=== PATIENT | male | born 1990 | race African-American/Black ===

== ENCOUNTER 2018-07-11 13:00 | Emergency (ER) | payer SELFPAY ==
[2018-07-11 13:04] VITALS: BP 136/80
--- NOTE | 2018-07-11 14:27 | ER Document Report ---
ED GI Bleed / Rectal Pain - General Chief Complaint: Bloody Stools Stated Complaint: BLOOD IN STOOL Time Seen by Provider: 07/11/18 13:46 Notes: Chief complaint: Rectal bleed History of complain:( obtained from----patient) 27 years old male had one bowel movement this morning which was slightly blood stained, the blood was sitting on the stool small amount was concerned and came to the ED never had a previous episode. Since then had not had any bleeding. No pain. No other symptoms. Sudden Onset: Sudden Duration: One time Severity: Mild Quality: Not applicable Context: Not applicable Exacerbating factor and relieving factors: None REVIEW OF SYSTEMS: CONSTITUTIONAL : Denies fever, chills, or sweats. Denies recent illness. EENT: Denies eye, ear, throat, or mouth pain or symptoms. Denies nasal or sinus congestion or discharge. Denies throat, tongue, or mouth swelling or difficulty swallowing. CARDIOVASCULAR: Denies chest pain. Denies palpitations or racing or irregular heart beat. Denies ankle edema. RESPIRATORY: Denies cough, cold, or chest congestion. Denies shortness of breath, difficulty breathing, or wheezing. GASTROINTESTINAL: Denies distention. Denies nausea, vomiting, or diarrhea. Denies blood in vomitus, stools, or per rectum. Denies black, tarry stools. Denies constipation. GENITOURINARY: Denies difficulty urinating, painful urination, burning, frequency, blood in urine, or discharge. FEMALE GENITOURINARY: Denies vaginal bleeding, heavy or abnormal periods, irregular periods. Denies vaginal discharge or odor. MUSCULOSKELETAL: Denies back or neck pain or stiffness. Denies joint pain or swelling. SKIN: Denies rash, lesions or sores. HEMATOLOGIC : Denies easy bruising or bleeding. LYMPHATIC: Denies swollen, enlarged glands. NEUROLOGICAL: Denies confusion or altered mental status. Denies passing out or loss of consciousness. Denies dizziness or lightheadedness. Denies headache. Denies weakness or paralysis or loss of use of either side. Denies problems with gait or speech. Denies sensory loss, numbness, or tingling. Denies seizures. PSYCHIATRIC: Denies anxiety or stress. Denies depression, suicidal ideation, or homicidal ideation. ALL OTHER SYSTEMS REVIEWED AND NEGATIVE. PHYSICAL EXAMINATION: GENERAL: Well-appearing, well-nourished and in no acute distress. HEAD: Atraumatic, normocephalic. EYES: Pupils equal round and reactive to light, extraocular movements intact, conjunctiva are normal. ENT: Nares patent, oropharynx clear without exudates. Moist mucous membranes. NECK: Normal range of motion, supple without lymphadenopathy LUNGS: Breath sounds clear to auscultation bilaterally and equal. No wheezes rales or rhonchi. HEART: Regular rate and rhythm without murmurs ABDOMEN: Soft, nontender, nondistended abdomen. No guarding, no rebound. No masses appreciated. Rectal exam-normal no hemorrhoids noted no obvious fissures noted. No internal hemorrhoids. Stool color is yellow. Examination of genitals-deferred Musculoskeletal: Normal range of motion, no pitting or edema. No cyanosis. NEUROLOGICAL: Cranial nerves grossly intact. Normal speech, normal gait. Normal sensory, motor exams PSYCH: Normal mood, normal affect. SKIN: Warm, Dry, normal turgor, no rashes or lesions noted. Dictation was performed using [employer] voice recognition software TRAVEL OUTSIDE OF THE [place] IN LAST 30 DAYS: No - HPI Notes: Dictated - Related Data Allergies/Adverse Reactions: No Known Allergies Allergy (Verified 02/16/16 03:36) Past Medical History - Social History Smoking Status: Current Every Day Smoker Cigarette use (# per day): No Chew tobacco use (# tins/day): No Smoking Education Provided: No Frequency of alcohol use: Occasional Drug Abuse: None Family History: Reviewed & Not Pertinent Patient has suicidal ideation: No Patient has homicidal ideation: No Renal/ Medical History: Denies: Hx Peritoneal Dialysis - Immunizations Immunizations up to date: Yes Hx Diphtheria, Pertussis, Tetanus Vaccination: Yes Review of Systems - Review of Systems Notes: Dictated Physical Exam - Vital signs Vitals: Temp Pulse Resp BP Pulse Ox 99.0 F 89 14 136/80 H 98 07/11/18 13:07/11/18 13:07/11/18 13:07/11/18 13:03 07/11/18 13:03 - Notes Notes: Dictated Course - Vital Signs Vital signs: Temp Pulse Resp BP Pulse Ox 99.0 F 89 14 136/80 H 98 07/11/18 13:03 07/11/18 13:03 07/11/18 13:03 07/11/18 13:03 07/11/18 13:03 Discharge - Discharge Clinical Impression: Rectal bleed Condition: Fair Disposition: HOME, SELF-CARE Instructions: Rectal Bleeding, Unclear Cause (OM)
== END 2018-07-11 15:35 | disposition home or self-care (01) ==
LOC: ER 13:00
DX: K62.5 Hemorrhage of anus and rectum (principal); R19.5 Other fecal abnormalities; F17.200 Nicotine dependence, unspecified, uncomplicated
CPT/HCPCS: 82272; 99284

== ENCOUNTER 2018-09-26 21:31 | Emergency (ER) | payer SELFPAY ==
[2018-09-26] MEDS ORDERED: MORPHINE SULFATE 10 MG/ML INJ IM ONE (23:10)
[2018-09-26] MEDS ORDERED: ONDANSETRON 4 MG TAB.RAPDIS PO ONE (23:10)
[2018-09-26] MEDS ORDERED: AMOXICILLIN TR/POT CLAVULANATE 500-125 MG TAB PO ONE (23:11)
[2018-09-26] MEDS ORDERED: RABIES IMMUNE GLOBULIN INJ/PF 300 UNIT/2 ML SDV IM ONE (23:15)
[2018-09-26] MEDS ORDERED: RABIES VACCINE (PCEC)/PF 2.5 UNIT/1 ML KIT IM ONE (23:15)
[2018-09-26] MEDS ORDERED: DIPH/PERTUSS(ACELL)/TETANUS VAC/PF 0.5 ML SYR (>=10YO) IM ONE (23:17)
[2018-09-26] MEDS ORDERED: LIDOCAINE 1% INJ-PF (10 MG/ML) 30 ML SDV INJ ONE (23:17)
--- NOTE | 2018-09-26 23:24 | ER Document Report ---
ED Animal Bite - General Chief Complaint: Dog Bite Stated Complaint: POSSIBLE DOG BITE Time Seen by Provider: 09/26/18 22:57 Mode of Arrival: Wheelchair Information source: Patient Notes: 28-year-old male presented to ED for complaint of dog bites to his left thigh and knee and right index finger. He states him and his girlfriend were walking along when a big black dog came up and was very aggressive. He states he tried to get him to go away and he became more aggressive and bit him multiple times to the left leg left thigh and left knee he states he stuck his hand in his mouth to get him off of his leg and he bit his right index finger. He states he has never seen this dog before and does not know where the dog came from. He states it happened about 730 tonight. He states his tetanus is not up-to- date. He states that the time he was able to walk it was not painful but it is slowly become more more painful. TRAVEL OUTSIDE OF THE [place] IN LAST 30 DAYS: No - HPI Location of injury: LLE, Other - Right index finger Severity of injury: Bitten Onset: This evening Quality of pain: Pressure, Sharp, Throbbing Pain Level: 5 Context of attack: "Unprovoked" attack Type of animal: Dog Appearance of animal: Appeared well Animal's immunizations: Unknown Animal captured or known: No Animal control notified: Yes Animal control form completed: Yes - Related Data Allergies/Adverse Reactions: No Known Allergies Allergy (Verified 02/16/16 03:36) Past Medical History - General Information source: Patient - Social History Smoking Status: Current Every Day Smoker Cigarette use (# per day): Yes - 5-6 cigarettes a day Chew tobacco use (# tins/day): No Smoking Education Provided: Yes - 4 Minutes Frequency of alcohol use: Social Drug Abuse: Marijuana Occupation: [employer] Lives with: Friend Family History: Reviewed & Not Pertinent Patient has suicidal ideation: No Patient has homicidal ideation: No - Past Medical History Cardiac Medical History: Reports: None Pulmonary Medical History: Reports: None EENT Medical History: Reports: None Neurological Medical History: Reports: None Endocrine Medical History: Reports: None Renal/ Medical History: Reports: None Malignancy Medical History: Reports None GI Medical History: Reports: None Musculoskeletal Medical History: Reports Hx Musculoskeletal Trauma Skin Medical History: Reports None Psychiatric Medical History: Reports: None Traumatic Medical History: Reports: None Infectious Medical History: Reports: None Surgical Hx: Negative Past Surgical History: Reports: None - Immunizations Immunizations up to date: Yes Hx Diphtheria, Pertussis, Tetanus Vaccination: Yes - 09/26/2018 Review of Systems - Review of Systems Constitutional: No symptoms reported EENT: No symptoms reported Cardiovascular: No symptoms reported Respiratory: No symptoms reported Gastrointestinal: No symptoms reported Genitourinary: No symptoms reported Male Genitourinary: No symptoms reported Musculoskeletal: No symptoms reported Skin: Other - Multiple dog bites to the left thigh knee and leg and a small dog bite to the right index finger Hematologic/Lymphatic: No symptoms reported Neurological/Psychological: No symptoms reported -: Yes All other systems reviewed and negative Physical Exam - Vital signs Vitals: Temp Pulse Resp BP Pulse Ox 99.0 F 100 20 145/87 H 100 09/26/18 21:38 09/26/18 21:38 09/26/18 21:38 09/26/18 21:38 09/26/18 21:38 Interpretation: Normal - General General appearance: Appears well, Alert - HEENT Head: Normocephalic, Atraumatic Eyes: Normal Pupils: PERRL - Respiratory Respiratory status: No respiratory distress Chest status: Nontender Breath sounds: Normal Chest palpation: Normal - Cardiovascular Rhythm: Regular Heart sounds: Normal auscultation Murmur: No - Abdominal Inspection: Normal Distension: No distension Bowel sounds: Normal Tenderness: Nontender Organomegaly: No organomegaly - Back Back: Normal, Nontender - Extremities General upper extremity: Normal color, Normal ROM, Normal temperature General lower extremity: Normal color, Normal ROM, Normal temperature, Normal weight bearing. No: Darlyn's sign Hand: Tender, Laceration - Dog bite to right index finger, No evidence of human bite, No evidence of FB Thigh: Tender, Laceration - 8 dog bite laceration to left thigh Knee: Tender - Multiple dog bites to the left thigh, Laceration - 2 dog bites to the left knee - Neurological Neuro grossly intact: Yes Cognition: Normal Orientation: AAOx4 [place] Coma Scale Eye Opening: Spontaneous [place] Coma Scale Verbal: Oriented [place] Coma Scale Motor: Obeys Commands [place] Coma Scale Total: 15 Speech: Normal Motor strength normal: LUE, RUE, LLE, RLE Sensory: Normal - Psychological Associated symptoms: Normal affect, Normal mood - Skin Skin Temperature: Warm Skin Moisture: Dry Skin Color: Normal Course - Re-evaluation Re-evalutation: 09/27/18 01:20 8 lacerations from dog bites to the left thigh cleaned well with Shur-Clens after using lidocaine 2 numb the area rinsed well with saline then rabies immunoglobulin inserted wounds dressed with Neosporin and large Band-Aids. Same procedure followed for 2 lacerations to left knee and one laceration to right index finger. Patient was treated with Augmentin, tetanus, and rabies vaccine. Patient was instructed to follow-up for scheduled vaccines as per protocol. Patient was discharged home with prescription for Augmentin and a [place] dispense pack. Patient instructed to follow-up with his primary doctor tomorrow to have wounds reassessed and follow-up appointments made for any pain control needed after his initial [place] dispense pack. Patient will be seen in the emergency room on day 3, 7, and 14 for his rabies vaccines. Patient will be provided with crutches due to the pain in his leg. 09/27/18 01:37 Dr. Peter was consulted and he did come and examine the dog bites. Patient understood the risk of suturing his dog bites and stated he did not want any sutures and was okay with the scarring. - Vital Signs Vital signs: Temp Pulse Resp BP Pulse Ox 99.0 F 100 20 145/87 H 100 09/26/18 21:38 09/26/18 21:38 09/26/18 21:38 09/26/18 21:38 09/26/18 21:38 - Diagnostic Test Radiology reviewed: Image reviewed, Reports reviewed Discharge - Discharge Clinical Impression: dog bite to right index finger Dog bite of multiple sites of left lower extremity Qualifiers: Encounter type: initial encounter Qualified Code(s): S81.852A - Open bite, left lower leg, initial encounter; W54.0XXA - Bitten by dog, initial encounter; W54.0XXA - Bitten by dog, initial encounter Condition: Stable Disposition: HOME, SELF-CARE Instructions: Family Physicians / Practices Additional Instructions: Animal Bites Animal bites are often heavily contaminated with bacteria. In spite of thorough cleansing and proper treatment, these wounds frequently become infected. Bite wounds of the hands are especially prone to complications. Bites are dressed, if possible. Large wounds may require suturing after internal cleansing. Because of infection risk, some large wounds must remain unstitched. Your doctor is trained to advise you on the best treatment for your bite. Call the doctor at once if the wound becomes red, swollen, warm, increasingly painful, or if it begins to drain. Danger signs also include red streaks up the involved extremity, swollen glands in the groin or under the arm , or fever and chills. The risk of rabies from domestic animals is very low. Bats, sick animals, and wild animals may expose you to rabies. The physician, or the health department, will inform you if you will need to receive the rabies vaccine. NON-SUTURED LACERATION: Your laceration did not require suturing. Some lacerations cannot be sutured because of increased infection risk, while others simply don't need stitches because they are shallow or very short. Your injury should be protected while it heals. Usually complete healing takes 10 to 14 days. Keep the dressing clean and dry, and change it every day. If you notice increasing pain, redness, swelling, drainage, or tender lumps in the armpit or groin above the injury, infection may be present. You should call the doctor at once. SOAP CLEANSING: Gently wash the wound daily using a mild soap (like Ivory, Phisoderm, Neutrogena). Use warm water, rubbing gently until all debris, ooze, and crusting have been washed from the wound. Allow to dry briefly (about 10 minutes) after cleaning. Repeat this cleansing at least three times a day for the first two days and then once or twice a day. ANTIBIOTIC OINTMENT PROTECTION: Your wounds are such that dressing them is not practical or optional. After cleansing, you should apply a thin coating of antibiotic ointment ( Bacitracin, not Neosporin) to the wounds at least three times daily. This lessens infection risk, and may decrease the amount of scarring. Use a q-tip or dull butter knife, not your finger, to apply this ointment. Any debris or ooze which builds up in the ointment should be gently rubbed off with a sterile gauze pad. Harder crusting may need to be gently scrubbed off with a clean wash cloth with soap and warm water, perhaps applying a warm, wet wash cloth to the wound for ten minutes first. Development of redness, severe itching, or blistering may mean allergy to the ointment. See the doctor. TETANUS IMMUNIZATION GIVEN: You have been given an immunization against tetanus. Please record this in your records. In general, a booster is needed only once every 10 years. The tetanus shot protects against tetanus or "lockjaw," which is a complication of certain wound infections (the tetanus shot cannot protect against the actual infection). The immunization site may become warm and red due to local reaction. If this occurs, apply warm compresses and take aspirin or ibuprofen to reduce inflammation and discomfort. Return for evaluation if the reaction becomes severe. Augmentin Augmentin is a mixture of amoxicillin and clavulanate. Amoxicillin is a member of the penicillin family. It covers the germs likely to cause ear, bronchial, and urinary infections better than plain penicillin. The addition of clavulanate allows it to cover staph infections of the skin, as well as resistant cases of ear and sinus infections. Your physician has chosen Augmentin for you because of the special nature of your situation. Augmentin is best taken with meals. Nausea after taking the medication is rare, but can occur. Diarrhea can occur, particularly in small children. Vaginal yeast infections, and oral thrush in infants are also common. Contact your physician if these problems occur. Allergy to penicillins is common. If you have had an allergic reaction to any drug of the penicillin family, you should never take any other penicillin. Notify your doctor at once if you develop hives, shortness of breath, swelling, or faintness. ORAL NARCOTIC MEDICATION: You have been given a [employer] dispense pack for pain control. This medication is a narcotic. It's best taken with food, as nausea can result if taken on an empty stomach. Don't operate machinery or drive within six hours of taking this medication. Do not combine this medicine with alcohol, or with any medication which can cause sedation (such as cold tablets or sleeping pills) unless you get permission from the physician. Narcotics tend to cause constipation. If possible, drink plenty of fluids and eat a diet high in fiber and fruits. FOLLOW-UP CARE: Please follow-up with your primary doctor tomorrow or return to the ED in 3 days for an infection check. If you have been referred to another physician for follow-up care, call that physicians office for an appointment as you were instructed. If you experience a significant change in your laceration, or if you are concerned there may be an infection (swelling, redness, drainage, increasing tenderness, red streaks, tender lumps in the armpit or groin above the laceration, or fever) , return to the Emergency Department immediately re-evaluation. Prescriptions: Amox Tr/Potassium Clavulanate [Augmentin 875-125 Tablet] 1 tab PO BID 10 Days tablet Forms: Elevated Blood Pressure, Smoking Cessation Education, Return to Work
--- NOTE | 2018-09-27 01:13 | RADIOLOGY REPORT (SQ) ---
EXAM DESCRIPTION: XR FEMUR 2 VIEWS COMPLETED DATE/TME: 09/26/2018 23:09 CLINICAL HISTORY: 28 years, Male, dog bite COMPARISON: None. NUMBER OF VIEWS: 3 TECHNIQUE: 3 views of the left femur LIMITATIONS: None. FINDINGS: Proximal portions of the femur were not entirely included on the exam. Soft tissue gas is noted distally, however there is no radiopaque foreign body. No evidence for acute fracture. IMPRESSION: Distal soft tissue gas. No radiopaque foreign body 2010 [employer]- All Rights Reserved
[2018-09-27] MEDS ORDERED: HYDROCODONE/ACETAMINOPHEN 5-325 MG (6 TAB/ER DISP) PO PRN (01:25)
[2018-09-27 01:40] VITALS: BP 157/108
== END 2018-09-27 01:42 | disposition home or self-care (01) ==
LOC: ER 21:31
DX: S61.250A Open bite of right index finger without damage to nail, initial encounter (principal); S71.152A Open bite, left thigh, initial encounter; S81.052A Open bite, left knee, initial encounter; W54.0XXA Bitten by dog, initial encounter; Y93.01 Activity, walking, marching and hiking; F12.10 Cannabis abuse, uncomplicated; F17.210 Nicotine dependence, cigarettes, uncomplicated; Z71.6 Tobacco abuse counseling; Z23 Encounter for immunization
CPT/HCPCS: 99406; 99283; 96372; 90471 ×2; 73552; 90715; 90675; 90376; S0119; J3490; J2270

== ENCOUNTER 2019-07-28 02:41 | Emergency (ER) | payer SELFPAY ==
[2019-07-28 02:48] VITALS: BP 143/88
[2019-07-28] MEDS ORDERED: NORMAL SALINE 1000 ML 1,000 ML IV ONE (03:02)
[2019-07-28] MEDS ORDERED: ONDANSETRON HCL INJ/PF 4 MG/2 ML SDV IV ONE (03:02)
--- NOTE | 2019-07-28 04:27 | ER Document Report ---
ED Medical Screen (RME) - General Chief Complaint: Vomiting Stated Complaint: VOMITING Time Seen by Provider: 07/28/19 03:01 Notes: Patient is otherwise healthy 28-year-old male presents to the emergency department with multiple episodes of vomiting this evening. States he ate at [employer] and shortly after that had multiple episodes of non-bloody nonbilious vomit. Patient's denying any diarrhea or fevers. States generalized left upper abdominal pain. GENERAL: Alert, interacts well. No acute distress. ABDOMEN: Soft, slight left upper quadrant pain noted.. Non-distended. Bowel sounds present in all 4 quadrants. I have greeted and performed a rapid initial assessment of this patient. A comprehensive ED assessment and evaluation of the patient, analysis of test results and completion of the medical decision making process will be conducted by additional ED providers. I have specifically instructed the patient or family members with the patient to immediately return to any nursing staff should anything change in the patient's condition or with their chief complaint. This medical record was dictated with voice recognizing software. There may be grammatical, syntax errors that are unintended. TRAVEL OUTSIDE OF THE [place] IN LAST 30 DAYS: No - Related Data Allergies/Adverse Reactions: No Known Allergies Allergy (Verified 02/16/16 03:36) Past Medical History Renal/ Medical History: Denies: Hx Peritoneal Dialysis Musculoskeltal Medical History: Reports Hx Musculoskeletal Trauma - Immunizations Immunizations up to date: Yes Hx Diphtheria, Pertussis, Tetanus Vaccination: Yes - 09/26/2018 Physical Exam - Vital signs Vitals: Temp Pulse Resp BP Pulse Ox 98.5 F 93 16 143/88 H 97 07/28/19 02:46 07/28/19 02:46 07/28/19 02:46 07/28/19 02:46 07/28/19 02:46 Course - Vital Signs Vital signs: Temp Pulse Resp BP Pulse Ox 98.5 F 93 16 143/88 H 97 07/28/19 02:46 07/28/19 02:46 07/28/19 02:46 07/28/19 02:46 07/28/19 02:46 Doctor's Discharge - Discharge Disposition: LEFT WITHOUT BEING SEEN
== END 2019-07-28 03:10 | disposition left against medical advice (07) ==
LOC: ER 02:41
DX: Z53.21 Procedure and treatment not carried out due to patient leaving prior to being seen by health care provider (principal)

== ENCOUNTER 2019-11-05 21:29 | Emergency (ER) | payer SELFPAY | END 2019-11-05 22:15 | disposition left against medical advice (07) | LOC: ER 21:29 | DX: Z53.21 Procedure and treatment not carried out due to patient leaving prior to being seen by health care provider (principal); R04.2 Hemoptysis ==